=== PATIENT | male | born 1960 | race African-American/Black ===

== ENCOUNTER 2017-12-11 09:19 | Emergency (ER) | payer MEDICAID ==
[~2017-12-11] VITALS: Ht 167.6 cm; Wt 84.4 kg
[~2017-12-11 09:19] MED LIST: NORPTMEDS CO
[2017-12-11 09:40] VITALS: BP 126/85
== END 2017-12-11 10:31 | disposition home or self-care (01) ==
LOC: ER 09:19
DX: S83.91XA Sprain of unspecified site of right knee, initial encounter (principal); S16.1XXA Strain of muscle, fascia and tendon at neck level, initial encounter; I10 Essential (primary) hypertension; E11.9 Type 2 diabetes mellitus without complications; F17.210 Nicotine dependence, cigarettes, uncomplicated; Z88.0 Allergy status to penicillin; Z88.6 Allergy status to analgesic agent; V43.52XA Car driver injured in collision with other type car in traffic accident, initial encounter; Y93.89 Activity, other specified; Y92.488 Other paved roadways as the place of occurrence of the external cause; Y99.8 Other external cause status
CPT/HCPCS: 99283; J7030

== ENCOUNTER 2018-04-10 06:15 | Emergency (ER) | payer MEDICAID, OTHER ==
[~2018-04-10] VITALS: Ht 167.6 cm; Wt 83.9 kg
[2018-04-10] MEDS ORDERED: SODIUM CHLORIDE 0.9% 1,000 ML IV ONE (07:21)
[2018-04-10] MEDS ORDERED: NALBUPHINE HCL 10 MG/1ml INJECTION IV ONE (07:30)
[2018-04-10] MEDS ORDERED: METOCLOPRAMIDE HCL 5MG/ml INJ 2ml VIAL IV ONE (07:30)
[2018-04-10 07:55] LABS: Basophils # (auto) 0 uL; Basophils % (auto) 0.7 % (0.0-2.0); Eosinophils # (auto) 0.1 uL; Eosinophils % (auto) 1.3 % (0.0-7.0); Hematocrit 52.5 % (41.0-53.0); Hemoglobin 17.5 g/dL (13.5-17.5); Lymphocytes # (auto) 1.8 uL; Mean Corpuscular Hgb Conc. 33.3 g/dL (32.0-36.0); Mean Corpuscular Volume 90.3 fL (80.0-100.0); Monocytes # (auto) 0.7 uL; Monocytes % (auto) 10.5 % (0.0-12.0); Neutrophils # (auto) 3.7 uL; Neutrophils % (auto) 59.5 % (37.0-80.0); Nucleated Red Blood Cells % 0.1 %; Platelet Count (auto) 176 10^3/uL (140-450); Red Blood Cells 5.81 10^6/uL (4.5-5.90); Red Cell Distribution Width 15.9 % (11.8-14.3); White Blood Cell 6.3 10^3/uL (4.4-10.8)
[2018-04-10 08:08] LABS: Albumin 3.6 g/dL (3.4-5.0); BUN/Creatinine Ratio 13.1; Calcium 8.9 mg/dL (8.5-10.1); Magnesium 2.2 mg/dL (1.6-2.6); Potassium 3.7 mmol/L (3.5-5.1)
[2018-04-10 08:11] LABS: Bilirubin, Total 0.5 mg/dL (0.2-1.0); Total Protein 7.6 g/dL (6.4-8.2)
[2018-04-10 08:51] LABS: Urine Bacteria NONE SEEN /hpf (None Seen); Urine Blood Negative /uL (Negative); Urine Specific Gravity 1.014 (1.001-1.035); Urine WBC <1 /hpf (0 - 3)
[2018-04-10 09:17] VITALS: BP 119/73
== END 2018-04-10 10:57 | disposition home or self-care (01) ==
LOC: ER 06:15
DX: R51 Headache (principal); I10 Essential (primary) hypertension; E11.9 Type 2 diabetes mellitus without complications; F17.210 Nicotine dependence, cigarettes, uncomplicated
CPT/HCPCS: 36415; 70450; 80053; 81001; 83735; 85025; 85652; 96374; 96375; 99285; J2300; J2765; J7030; 93005